=== PATIENT | male | born 1965 | race Asian ===

== ENCOUNTER 2025-03-10 09:40 | Emergency (ER) | payer BC, SELFPAY ==
[2025-03-10 09:45] VITALS: BP 171/89
--- NOTE | 2025-03-10 10:13 | ED.GENMED ---
History of Present Illness
General
Chief Complaint: Cold/Flu/URI Symptoms
Source: patient and spouse
Exam Limitations: none
Time Seen by Provider: 03/10/25 09:52
History of Present Illness
History of Present Illness:
59yoM with a history of atrial fibrillation s/p ablations no longer on medications and asthma presenting for evaluation of a cough. Patient recently returned from a trip to [facility] yesterday. He started to become sick 4 days ago while he was on
his trip with URI symptoms, cough, and subjective fevers. He had a positive COVID test on 03/07/2025. Cough is productive of yellow and red sputum. He also reports wheezing and shortness of breath. No chest pain. He was seen at urgent care this
morning for his symptoms. Chest x-ray showed multifocal pneumonia and he was sent to the ED for evaluation. No tobacco use.
Phy Exam
General Physical Exam
General Presentation: well appearing and no apparent distress
General age: appears stated age
General Skin: warm and dry
General Habitus: normal
General Mental: alert
ENT Exam
ENT Exam: normocephalic
Cardiovascular Exam
Cardiovascular Exam: regular rate/rhythm
Pulmonary Exam
Pulmonary Exam: no respiratory distress and other (Expiratory wheezes noted. Speaking in full sentences without difficulty. Oxygen saturation 97% on room air.)
Neurological Exam
Neurological Exam: alert
[place] Coma Scale
Eye Opening: Spontaneous
Verbal Response: Oriented
Motor Response: Obeys Commands
GCS Total Score: 15
Skin Exam
Skin Exam: normal color and warm/dry
Psychiatric Exam
Psychiatric Exam: normal mood/affect
Course
Orders/Labs/Results
Orders:
Orders
03/10/25 10:01
0.9% Sodium Chloride 1000 ml [Nss] 1,000 ml IV BOLUS
Ipratropium/Albuterol Sulfate [Duoneb] 3 ml INH R NOW STA
03/10/25 10:14
COVID-19 Antigen Urgent
Source: Nasal Swab
Complete Blood Count/With Diff Urgent
Comprehensive Metabolic Panel Urgent
D-Dimer Urgent
Procalcitonin Urgent
PCT Algorithmm Indication: Respiratory
Troponin I Urgent
Influenza A+B Rapid Molecular Urgent
ERICKSON Source: Nasal Swab
Specimen Description:
03/10/25 10:47
Electrocardiogram (*1) Urgent
Reason for Study: Chest Pain
EKG- Treatment ONCE
03/10/25 10:53
CR Chest - 2 Views Urgent
Comment:
Reason For Exam: cough
03/10/25 11:51
CefTRIAXone [Rocephin] 2,000 mg IV NOW STA
Abnormal Lab Results
03/10/25
10:14
RBC 3.94 L 10^6/uL
(4.70-6.10)
Hgb 12.8 L g/dL
(13.0-18.0)
Hct 35.7 L %
(39.0-52.0)
MCH 32.5 H pg
(27.0-31.0)
MPV 10.7 H fL
(7.4-10.4)
Absolute Lymphs (auto) 0.5 L 10^3/uL
(1.2-3.4)
Neutrophils % 81.3 H %
(42.2-75.2)
Lymphocytes % 7.5 L %
(20.5-51.1)
Monocytes % 10.2 H %
(1.7-9.3)
Glucose 146 H mg/dl
(70-99)
AST 77 H U/L
(17-59)
ALT 97 H U/L
(0-50)
Alkaline Phosphatase 149 H U/L
(38-126)
Procalcitonin 0.26 H ng/ml
(0.0-0.25)
SARS-CoV-2 Antigen Positive A
(Negative)
03/10/25 10:14
03/10/25 10:14
Vital Signs
Initial and Last Documented VS:
Initial Vital Signs
Temp Pulse Resp BP Pulse Ox
99.8 F 98 16 171/89 97
03/10/25 09:45 03/10/25 09:45 03/10/25 09:45 03/10/25 09:45 03/10/25 09:45
Last Documented Vital Signs
Temp Pulse Resp BP Pulse Ox
99.8 F 98 20 152/78 99
03/10/25 09:45 03/10/25 11:57 03/10/25 11:57 03/10/25 11:57 03/10/25 11:57
MDM/Problems Addressed
Differential Diagnosis Includes:
59yoM here after multifocal pneumonia was found on CXR at urgent care. Tested positive for COVID 3 days ago. He is hypertensive with otherwise stable vitals. Oxygen saturation 97% on room air. There is expiratory wheezes on lung exam although
respirations are nonlabored. Differential diagnosis includes but is not limited to: COVID-pneumonia, superimposed bacterial pneumonia, asthma exacerbation, consider PE given recent travel
Initial ED plan: Check cardiac labs, D-dimer, procalcitonin, EKG, and CXR.
*EKG
Interpreted by ED Provider?: Yes
EKG Intrepretation Date: 03/10/25
Heart Rate: 97
Rate: normal
Rhythm: sinus
[place]: normal axis
QRS Pattern: right bundle branch block (incomplete)
Ischemia: other (nonspecific T wave changes)
*Critical Care Note
Total Time (30-74mins, 75-104mins- exclusive of procedures): Not Applicable
Update Note
Update Note:
COVID test here is positive. Mild transaminitis noted which is likely secondary to underlying COVID infection. Procalcitonin mildly elevated at 0.26. EKG shows nonspecific T wave changes and troponin within normal limits. D-dimer normal making
PE very unlikely. CXR shows multifocal pneumonia per my interpretation. Pneumonia likely 2/2 COVID although given elevated procalcitonin, will cover with antibiotics. Oxygen saturation 97-98% on reassessment. No indication for hospitalization.
Dose of IV Rocephin given as is requesting IV antibiotics based on urgent care recommendations. He was started on a course of cefdinir, doxycycline, and prednisone provided. Prescription for Paxlovid also given per request. Advised close f/u
with PCP and ED return precautions reviewed. Patient and in agreement with plan and he was discharged in stable condition.
After discharge, radiology report for CXR finalized. Report indicates questionable ectasia of ascending aorta which could be evaluated with follow-up CT scan. called and informed of this finding. Advised f/u with PCP for outpatient CT scan.
ED Attending Note
-
Portions of this chart may have been created with voice recognition software.� Occasional wrong word or��sound alike� substitutions may have occurred due to the inherent limitations of voice recognition software.
Discharge Plan
Departure
Patient Disposition: Home (Routine Discharge)
Date of Disposition: 03/10/25
Time of Disposition: 11:51
Patient with high blood pressure during this ER visit?: Yes
Discharge Problem:
COVID-19, Multifocal pneumonia
Instructions: Pneumonia in adults - ED discharge instructions, Coronavirus Home Quarantine
Prescriptions:
New
cefdinir 300 mg capsule
300 mg PO BID Qty: 14 0RF
doxycycline hyclate 100 mg capsule
100 mg PO BID Qty: 14 0RF
albuterol sulfate [Ventolin HFA] 90 mcg/actuation HFA aerosol inhaler
1 inh inhalation Q6H PRN (Reason: shortness of breath or wheezing) Qty: 1 0RF
prednisone 50 mg tablet
50 mg PO DAILY Qty: 5 0RF
Paxlovid 300 mg (150 mg x 2)-100 mg tablets,dose pack
See Rx Instructions .ROUTE .COMPLEX Qty: 30 0RF
Rx Instructions:
take TWO 150 mg tablets of nirmatrelvir with ONE 100 mg tablet of ritonavir twice daily for 5 days
Referrals:
Miguel Barreto MD, Resident [Family Provider] -
Activity Restrictions/Additional Instructions:
Take antibiotics and steroids as prescribed. Use inhaler as needed for wheezing. Drink plenty of fluids and rest. Use honey and humidifier for cough.
Please follow-up with your family doctor in 3 to 4 days. Return to the ER immediately with any new or worsening symptoms including trouble breathing.
Interventions
Interventions:
*Risk Screen - Suicide Last Done: 03/10/25 10:27
*General Assessment Last Done: 03/10/25 10:27
*Neglect/Abuse Screening Last Done: 03/10/25 10:27
*ED- Fall Risk Assessment Last Done: 03/10/25 10:27
*ED COVID-19 Vaccine History Last Done: 03/10/25 09:52
*Nursing Disposition Last Done: 03/10/25 11:58
ED- Pulmonary Assessment Last Done: 03/10/25 10:27
Discharge Date and Time
Discharge Date/Time: 03/10/25 12:41
Print Language: NIGERIEN
[2025-03-10 10:22] VITALS: BP 145/93
[2025-03-10] MEDS: NSS 1000 IV (10:23)
[2025-03-10 10:27] VITALS: BMI 30.1
[2025-03-10] MEDS: DUONEB 3 ML INH (10:32)
[2025-03-10 10:39] LABS: % Basophils 0.2 % (0-2); % Eosinophils 0.3 % (0-6); % Immature Granulocytes 0.5 % (0-0.5); % Lymphocytes 7.5 % (20.5-51.1); % Monocytes 10.2 % (1.7-9.3); % Neutrophils 81.3 % (42.2-75.2); Absolute Lymphocytes 0.5 10^3/uL (1.2-3.4); Absolute Monocytes 0.6 10^3/uL (0.1-0.6); Hematocrit 35.7 % (39.0-52.0); Hemoglobin 12.8 g/dL (13.0-18.0); Mean Corp Hgb Conc. 35.9 g/dL (33.0-37.0); Mean Corpuscular Hgb 32.5 pg (27.0-31.0); Mean Corpuscular Volume 90.6 fL (80.0-94.0); Mean Platelet Volume 10.7 fL (7.4-10.4); Nucleated Red Blood Cells % 0 % (-); Platelet Count 146 10^3/uL (130-400); Red Blood Cell Count 3.94 10^6/uL (4.70-6.10); Red Cell Dist. Width 13.5 % (11.5-14.5); White Blood Cell Count 6.2 10^3/uL (4.8-10.8)
[2025-03-10 10:48] LABS: COVID-19 Antigen Positive (Negative)
[2025-03-10 10:49] LABS: D-Dimer 0.32 ug/mlFEU (0.00-0.50)
[2025-03-10 10:50] LABS: ALT (SGPT) 97 U/L (0-50); AST (SGOT) 77 U/L (17-59); Albumin 4.1 g/dl (3.5-5.0); Alkaline Phosphatase 149 U/L (38-126); Blood Urea Nitrogen 17 mg/dl (9-20); Calcium 8.8 mg/dl (8.4-10.2); Carbon Dioxide 26 mmol/L (22-30); Chloride 104 mmol/L (98-107); Estimated Creatinine Clearance 119 ml/min; Glucose 146 mg/dl (70-99); Potassium 3.6 mmol/L (3.5-5.1); Sodium 139 mmol/L (135-145); Total Bilirubin 1.3 mg/dl (0.2-1.3); Total Protein 6.3 g/dl (6.3-8.2); eGFR > 60.00
[2025-03-10 11:00] VITALS: BP 155/82
[2025-03-10 11:00] LABS: Troponin I < 0.012 ng/ml
[2025-03-10 11:04] LABS: Procalcitonin 0.26 ng/ml (0.0-0.25)
[2025-03-10 11:57] VITALS: BP 152/78
[2025-03-10] MEDS: ROCEPHIN 2000 MG IV (12:03)
== END 2025-03-10 12:41 | disposition home or self-care (01) ==
LOC: EMR 09:40
PROVIDERS: Physician Assistant; EMERGENCY PHYSICIAN Emergency Medicine; FAMILY PHYSICIAN Student in an Organized Health Care Education/Training Program
DX: U07.1 COVID-19 (principal); J12.82 Pneumonia due to coronavirus disease 2019; J45.909 Unspecified asthma, uncomplicated; I48.91 Unspecified atrial fibrillation
CPT/HCPCS: 99283; 94640; 96374; 96361; 71046; 80053; 84145; 84484; 85025; 85379; 87502; 87811; 93005

== ENCOUNTER → 2025-04-08 09:12 | Outpatient (REF) | payer BC, SELFPAY | LOC: RAD 09:12 | PROVIDERS: ATTENDING PHYSICIAN Student in an Organized Health Care Education/Training Program | DX: R93.89 Abnormal findings on diagnostic imaging of other specified body structures (principal) | CPT/HCPCS: 71275; Q9967 ==